=== PATIENT | female | born 1965 | race Caucasian/White ===

== ENCOUNTER 2018-09-10 15:47 | Emergency (ER) | payer OTHER ==
[2018-09-10 15:54] VITALS: BP 111/78; PULSE 75; TEMP 98.1; BMI 28.9
--- NOTE | 2018-09-10 16:33 | PDOC ---
Suture Removal/Wound Check HPI - History of Present Illness Chief Complaint: Bite Stated Complaint: CAT BITE Time Seen by Provider: 09/10/18 15:56 History Source: Yes: Patient Exam Limitations: Yes: No Limitations Treated at: Other ED Date of Last ED visit: 09/09/18 - Previous ED Treatment Tetanus Immunization: Yes: Given at last ED visit Antibiotics Prescribed: Yes (Augmentin) Past History - Past Medical History Allergies/Adverse Reactions: Allergies Allergy/AdvReac Type Severity Reaction Status Date / Time No Known Allergies Allergy Verified 09/10/18 15:54 Home Medications: Ambulatory Orders Amox-Tr/K Cl [Augmentin - 875Mg Tablet] 1 tab PO BID 09/10/18 Duloxetine HCl [Cymbalta] 30 mg PO DAILY 09/10/18 Pantoprazole Sodium [Protonix] 40 mg PO BID 09/10/18 COPD: No GI Disorders: Yes (gerd) Psychiatric Problems: Yes (depression) - Suicide/Smoking/Psychosocial Hx Smoking History: Never smoked Suture Removal/Wound Check PE - Physical Exam Laceration/Wound Check Symptoms: reports: Pain, Redness Comments: 09/10/18 16:41 s/p domestic cat bite Current Severity Level: Mild Maximum Severity Level: Moderate Location of Laceration/Wound: right: Wrist, Hand Pain Radiation: None *Review of Systems - Review of Systems Able to Perform ROS?: Yes Integumentary: Yes: See HPI All Other Systems: Reviewed and Negative *Physical Exam - Vital Signs Last Vital Signs Temp Pulse Resp BP Pulse Ox 98.1 F 75 18 111/78 98 09/10/18 15:49 09/10/18 15:49 09/10/18 15:49 09/10/18 15:49 09/10/18 15:49 - Physical Exam General Appearance: Yes: Appropriately Dressed. No: Apparent Distress HEENT: positive: Normal ENT Inspection Respiratory/Chest: positive: Lungs Clear, Normal Breath Sounds. negative: Respiratory Distress, Accessory Muscle Use Cardiovascular: positive: Regular Rhythm, Regular Rate Integumentary: positive: Erythema (dorsum of right hand extending from base of ring finger to thumb and around to volar aspect of wrist medially) Moderate Sedation - Procedure Monitoring Vital Signs: Procedure Monitoring Vital Signs Temperature 98.1 F 09/10/18 15:49 Pulse Rate 75 09/10/18 15:49 Respiratory Rate 18 09/10/18 15:49 Blood Pressure 111/78 09/10/18 15:49 O2 Sat by Pulse Oximetry (%) 98 09/10/18 15:49 Medical Decision Making - Medical Decision Making 09/10/18 16:35 A/P: 53yo woman with cellulitis s/p cat bite Erythema present to dorsum of right hand extending from base of ring finger to thumb and around to volar aspect of wrist medially. Erythema improved on Augmentin started 1/5 d/c home to continue Augmentin. Strict return precautions given. *DC/Admit/Observation/Transfer Diagnosis at time of Disposition: Visit for wound check Cellulitis Qualifiers: Site of cellulitis: extremity Site of cellulitis of extremity: upper extremity Laterality: right Qualified Code(s): L03.113 - Cellulitis of right upper limb - Discharge Dispostion Disposition: HOME Condition at time of disposition: Fair Decision to Admit order: No - Referrals Referrals: Marky Scott [Primary Care Provider] - - Patient Instructions Additional Instructions: Continue antibiotics as previously prescribed. Return to emergency department for fevers, chills, worsening redness, red streaks up your forearm or any other concerns - Post Discharge Activity
== END 2018-09-10 16:37 | disposition home or self-care (01) ==
LOC: JERFT 15:47
DX: Z48.02 Encounter for removal of sutures (principal)
CPT/HCPCS: 99281-25